=== PATIENT | male | born 1955 | race Caucasian/White ===

== ENCOUNTER → 2017-07-14 | Outpatient (CLI) | payer OTHER ==
[~2017-07-14] MED LIST: ALB0.5 INH; CIPR250S3 PO; DRON5CAP14 PO; FAMC500T18 PO; GABA-490 PO; HYDR-317 PO; KET10 PO; LOR1 PO; LOR5/325 PO; METH4TAB57 PO; OXYC-865 PO; PANT40TA65 PO; PER PO; PHEN200T32 PO; RAN150 PO; TAMS0.4C25 PO
[2017-07-14 11:34] LABS: PLATELET COUNT, AUTOMATED 207 K/uL (150-450)
--- NOTE | 2017-07-14 11:39 | EKG ---
FACILITY: [facility] [place] PATIENT NAME: CARMENCITA RODRIGUEZ : [id number] MR: [id number] V: [id number] EXAM DATE: ORDERING PHYSICIAN: BALAJI RAMIREZ TECHNOLOGIST: Test Reason : Blood Pressure : / mmHG Vent. Rate : 071 BPM Atrial Rate : 071 BPM P-R Int : 130 ms QRS Dur : 088 ms QT Int : 412 ms P-R-T Axes : 076 081 071 degrees QTc Int : 447 ms Normal sinus rhythm Normal ECG When compared with ECG of 30-NOV-2014 08:17, No significant change was found Confirmed by WAYNE ZELAYA ([id number]) on 07/14/2017 6:56:08 PM Referred By: Confirmed By:WAYNE ZELAYA
[2017-07-14 11:46] LABS: INR 0.99
== END ==
LOC: LAB 11:22
PROVIDERS: ATTEND Otolaryngology
DX: Z01.818 Encounter for other preprocedural examination (principal); C44.222 Squamous cell carcinoma of skin of right ear and external auricular canal
CPT/HCPCS: 36415; 85025; 85610; 85730; 93005

== ENCOUNTER → 2017-07-17 | Outpatient (CLI) | payer OTHER | LOC: LAB 09:36 | PROVIDERS: ATTEND Internal Medicine Medical Oncology | DX: D75.0 Familial erythrocytosis (principal) | CPT/HCPCS: 36415; 85014; 99195 ==

== ENCOUNTER 2017-07-24 00:47 | Day surgery (SDC) | payer OTHER ==
--- NOTE | 2017-07-18 10:41 | RADIOLOGY IMAGING REPORT ---
[place] [facility] [place] NAME: Jaswant Wren : 1955 MR: [id number] V: [id number] EXAM DATE: ORDERING PHYSICIAN: WAYNE PADILLA TECHNOLOGIST: Location: [facility] - [place] Patient: Jaswant Wren : 1955 Visit/Account:[id number] Date of Sevice: 07/17/2017 2 VIEWS CHEST INDICATION: COPD. Prior partial left lung resection for lung cancer. COMPARISON: None available FINDINGS: The lungs are hyperexpanded. There are flattened diaphragms bilaterally. Linear pleural parenchymal s carring seen within the right apex. Apical bulla seen here on a prior CT scan. Suspected chronic pleu ral thickening/scarring is seen within the left lung base posteriorly. No focal infiltrate. No discre te focal abnormality. Surgical staple line overlies left hilum. No effusion or pneumothorax is seen. Heart size and mediastinal contours are normal. IMPRESSION: 1. Hyperexpanded lungs in keeping with the history of COPD. 2. Postsurgical changes overlying the left hilum. 3. Known pleural parenchymal scarring and bulla within the right apex. Report Dictated By: Nima Kim at 07/18/2017 10:32 AM Report E-Signed By: Nima Kim at 07/18/2017 10:37 AM WSN:[id number]
[~2017-07-24] VITALS: Ht 177.8 cm; Wt 58.1 kg
[2017-07-24] MEDS ORDERED: METOCLOPRAMIDE 10 MG/2 ML SDV ONE (06:37)
[2017-07-24] MEDS ORDERED: ONDANSETRON 4 MG/2 ML VIAL ONE (06:37)
[2017-07-24] MEDS ORDERED: LIDOCAINE MPF 1% 5 ML VIAL ONE (06:37)
[2017-07-24] MEDS ORDERED: DEXAMETHASONE SOD 4 MG/ML VIAL ONE (06:37)
[2017-07-24] MEDS ORDERED: PROPOFOL EMUL(*) 10MG/ML 20 ML 20 ML ONE (06:37)
[2017-07-24] MEDS ORDERED: fentaNYL CITR 100 MCG/2 ML AMP ONE (06:38)
[2017-07-24 07:30] VITALS: BP 104/76
[2017-07-24] MEDS ORDERED: NORMOSOL R SOLN(*) 1000 ML BAG 1,000 ML IV PRN (08:00)
[2017-07-24] MEDS ORDERED: FAMOTIDINE 20 MG TAB PO ONE (08:00)
[2017-07-24] MEDS ORDERED: CLINDAMYCIN(*) 600 MG/NS 50 ML 50 ML IVPB ONE (08:00)
[2017-07-24] MEDS ORDERED: MIDAZOLAM 2 MG/2 ML VIAL IVP PRN (08:00)
[2017-07-24] MEDS ORDERED: LIDOCAINE/SOD BICARB 8.4% SYR ID ONE (08:00)
[2017-07-24] MEDS ORDERED: LIDO/EPI 1% MDV 1:100,000 20ML INFIL ONE (08:06)
[2017-07-24] MEDS ORDERED: BACITRACIN OINT 15 GM TUBE TP ONE (08:06)
[2017-07-24] MEDS ORDERED: HYDR-4309 PO (09:50)
[2017-07-24] MEDS ORDERED: DOXY-179 PO (09:51)
--- NOTE | 2017-07-24 10:48 | OPERATIVE REPORT 1 ---
EVENT DATE: July 24, 2017 SURGEON: Leonides Gallo MD ANESTHESIOLOGIST: Jordan Kim MD ANESTHESIA: LMA PROCEDURE 1. Excision of right external ear skin cancers. 2. Reconstruction of right external ear defect with transposition flap. PREOPERATIVE DIAGNOSES 1. 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 2. 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 POSTOPERATIVE DIAGNOSES 1. 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 2. 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 INDICATIONS Please refer to the preoperative note. DESCRIPTION OF PROCEDURE The patient was positively identified in the preoperative area. He was accompanied there by his . Risks were again explained, including but not limited to, bleeding, infection, flap failure, poor cosmetic result, positive margins, the need for further procedures and those associated with anesthesia. He acknowledged understanding of those risks. He was then brought back to the operative suite, laid supine on the operative table, and anesthesia was administered. Once asleep, the patient was positioned, then prepped and draped in the usual sterile fashion. The patient had an approximately 1 cm ulcerative lesion on the right superior conchal bowl and a 1 cm x 3 mm oblong ulcerative lesion just lateral to the meatus. An incision was planned incorporating most of the conchal bowl, including the two ulcerative lesions with sufficient margin. A postauricular transposition flap was designed and measured approximately 4 x 2 cm. Approximately 5 mL of 1% lidocaine with epinephrine was infiltrated, both into the donor site and the excision site. I first began by excising the conchal bowl along with the underlying cartilage. The deep skin flap was preserved, as this was not involved with the cancer. The specimen was marked and sent for permanent pathology. The transposition flap was then incised and elevated, leaving a vascular pedicle. This was rotated into the conchal defect and secured to the surrounding skin with interrupted nylon suture. The postauricular defect was closed with jaziel. the patient was then turned to anesthesia for emergence. ESTIMATED BLOOD LOSS 25 mL. COMPLICATIONS No complications. MTDD
[2017-07-24] MEDS ORDERED: APAP/HYDROCODONE 325/5 TAB ONE (10:58)
[2017-07-24 11:02] VITALS: BP 97/65
[2017-07-24 11:15] VITALS: BP 92/65
[2017-07-24 11:20] VITALS: BP 91/63
[2017-07-24 11:26] VITALS: BP 92/69
[2017-07-25] MEDS ORDERED: PROM-110 PO (11:27)
== END 2017-07-24 11:02 | disposition home or self-care (01) ==
LOC: OR 00:47
PROVIDERS: ATTEND Otolaryngology
DX: C44.222 Squamous cell carcinoma of skin of right ear and external auricular canal (principal); C44.212 Basal cell carcinoma of skin of right ear and external auricular canal
CPT/HCPCS: 11641; 71046; 88305; J1100; J2001; J2250; J2405; J2704; J2765; J3010; J3490

== ENCOUNTER → 2017-09-21 | Outpatient (CLI) | payer OTHER ==
[~2017-09-21] MED LIST changes: +DOXY-179 PO; +HYDR-4309 PO; +PROM-110 PO
[2017-09-21 09:30] VITALS: BP 104/74
[2017-09-21 10:58] VITALS: BP 98/72
== END ==
LOC: SPU 07:39
PROVIDERS: ATTEND Internal Medicine Medical Oncology
DX: D75.0 Familial erythrocytosis (principal)
CPT/HCPCS: 85014; 99195

== ENCOUNTER → 2017-10-13 | Outpatient (CLI) | payer OTHER ==
[2017-10-13 14:08] VITALS: BP 99/67
[2017-10-13 14:47] VITALS: BP 85/58
== END ==
LOC: SPU 08:41
PROVIDERS: ATTEND Internal Medicine Medical Oncology
DX: D75.0 Familial erythrocytosis (principal)
CPT/HCPCS: 85014; 99195

== ENCOUNTER 2017-12-06 08:27 | Outpatient (RCR) | payer OTHER ==
[2017-12-04 11:31] LABS: PLATELET COUNT, AUTOMATED 184 K/uL (150-450)
[2017-12-04 16:51] VITALS: BP 105/64
[2017-12-06 08:45] VITALS: BP 97/57
--- NOTE | 2017-12-06 14:22 | ONCOLOGY FOLLOW UP NOTE ---
EVENT DATE: December 06, 2017 REASON FOR FOLLOWUP 1. Chronic lymphocytic leukemia. 2. History of resected non-small cell lung cancer. 3. Smoking. HISTORY OF PRESENT ILLNESS Mr. Wren is here with his today. He reports that he has been feeling pretty tired in general since our last visit. He continues to work long hours at the [employer]. He has had a lot of family stress, with his daughter's illness. He continues to smoke cigarettes. His appetite has not been particularly good. He has had ongoing us aches and pains, which has been a chronic problem with him. He reports no new shortness of breath, but he does have a smoker's cough. He has had no blood in sputum. He has not been able to afford appropriate follow-up imaging status post lung cancer resection, but he did have labs drawn prior to today's visit. REVIEW OF SYSTEMS Otherwise negative, and all systems are reviewed. ONCOLOGY HISTORY 1. Chronic lymphocytic leukemia, diagnosed in spring. a. Initial presentation with abdominal pain and lymphocytosis. b. In 2007: Bone marrow biopsy is performed. Pathology reveals 15% to 30% involvement by CLL. Per prior notes, CD38 expression was less than 28%, ZAP-70 was negative, cytogenetics showed deletion 13q, denoting favorable prognosis. c. The patient has been under observation since that time with no active therapy. 2. Reported stage IA non-small cell lung cancer of the left upper lobe. a. July 07, 2009: Robotic left upper lobectomy is performed. Pathology reportedly showed a stage IA (pT1a N0) non-small cell lung cancer. Histology at this time is in question. Lymph nodes showed involvement of CLL. b. Patient is reportedly also status post resection of a right submandibular lymph node which pathology revealed as a salivary gland. PAST MEDICAL HISTORY Other than the above, past medical history is largely unknown, although I do note mention of emphysema on prior imaging. Again, the patient has not regularly followed up with primary care. CURRENT MEDICATIONS Patient reports no prescription medications at this time. ALLERGIES No known drug allergies. SOCIAL HISTORY The patient continues to smoke. He has been giving some thought to quitting, but he has not taken any definitive step in that direction. There is no history of illicit drug use. FAMILY HISTORY The patient reports that many of his family members are or have been on oxygen in the past. His brother reportedly has a history of lymphoma, and his daughter reportedly had a history of brain cancer. VITAL SIGNS Temperature is 96.6, blood pressure 97/57, heart rate is 62, respirations 15, oxygen saturation is 95% on room air. PHYSICAL EXAMINATION GENERAL: Patient is alert and oriented times three, in no apparent distress sitting in the exam room chair. He is thin, and eye contact is poor. His affect is flat, but he is communicative and pleasant. HEENT: Exam reveals anicteric sclerae. LUNGS: Clear to auscultation bilaterally. HEART: Exam reveals regular rate and rhythm. NEUROLOGIC: Exam is grossly nonfocal, although his gait is somewhat antalgic. EXTREMITIES: Exam reveals very thin extremities, but no edema, clubbing or cyanosis. LABORATORY STUDIES Reviewed per the [employer] record. IMAGING None today. ASSESSMENT AND PLAN 1. Chronic lymphocytic leukemia. Gregory does not have any B symptoms. He has no other symptoms that would raise concern, or the possibility that he would require treatment for his CLL. We reviewed his labs today. His lymphocyte count is stable, and his hemoglobin has actually come down a bit with therapeutic phlebotomy. His platelet count is normal. I have recommended ongoing monitoring of his CLL, and I will see him back in six months after repeat labs, or sooner if there are questions or concerns. 2. Resected non-small cell lung cancer. Gregory continues to smoke. He has been smoking more recently due to family stress. He had tried Zyban, but quit due to stress. We discussed this at length, and he was not able to give very good rationale. He does have a high level of stress, but he has no interest in counseling, when discussed today. His finances are tight, and he has not been able to afford a CT scan. We did involve Social Work to see if we can help him out in this regard. We have tentatively planned to have him back in clinic in the next few weeks after a CT scan is performed, if finances are no longer a concern. Otherwise I will plan to see him back in six months, and we will continue to work on appropriate surveillance for his resected non-small cell lung cancer in the meantime. RICCARDO
--- NOTE | 2017-12-06 14:56 | RADIOLOGY IMAGING REPORT ---
FACILITY: [facility] [place] PATIENT NAME: Jaswant Wren : 1955 MR: [id number] V: [id number] EXAM DATE: ORDERING PHYSICIAN: HAYDEN CABA TECHNOLOGIST: Location: [facility] - [place] Patient: Jaswant Wren : 1955 Visit/Account:[id number] Date of Sevice: 12/06/2017 CHEST W/O CONTRAST History: Non-small cell lung cancer TECHNIQUE: Contiguous axial images were performed through the chest to the level of the adrenal gla nds. No IV contrast was administered. Coronal and sagittal reformatting was also performed. Dose Lowe ring Technique One of the following dose optimization techniques was utilized in the performance of this exam: Autom ated exposure control; adjustment of the mA and/or kV according to the patient's size; or use of an i terative reconstruction technique. Specific details can be referenced in the facility's radiology C T exam operational policy. COMPARISON STUDIES: CT chest abdomen and pelvis April 13, 2016. Lungs / Pleura: Extensive centrilobular emphysema throughout the lungs and biapical bullous disease again seen and appear similar to the prior study. There is stable linear scarring in the right lowe r lobe postsurgical changes from left upper lobe again noted. Mediastinum/nodes: Mediastinal structures are not ideally evaluated due to lack of intravenous contr ast although no pathologically enlarged hilar mediastinal lymph nodes are seen Heart and vessels: negative. Musculoskeletal / Body wall: No aggressive appearing bone lesions are seen Upper abdomen: Stomach is moderately distended with particulate material which may be related to a recent meal. Previously noted hepatic hemangiomas were better depicted on the prior postcontrast study IMPRESSION: Post surgical changes in the left upper lobe Extensive centrilobular emphysema throughout the lungs and biapical bullous disease appears similar t o the prior study. Scarring in the right lung base also appears similar Additional chronic findings as described Report Dictated By: Kassy Kimble MD at 12/06/2017 2:42 PM Report E-Signed By: Kassy Kimble MD at 12/06/2017 2:53 PM WSN:[id number]
== END 2017-12-21 14:15 | disposition home or self-care (01) ==
LOC: ONC 08:27
PROVIDERS: ATTEND Internal Medicine Medical Oncology
DX: C91.10 Chronic lymphocytic leukemia of B-cell type not having achieved remission (principal); J43.2 Centrilobular emphysema; Z85.118 Personal history of other malignant neoplasm of bronchus and lung; F17.210 Nicotine dependence, cigarettes, uncomplicated
CPT/HCPCS: 36415; 71250; 82040; 82247; 82310; 82374; 82435; 82565; 82947; 83615; 84075; 84132; 84155; 84295; 84450; 84460; 84520; 85025; 99212

== ENCOUNTER 2018-04-26 11:58 | Emergency (ER) | payer OTHER ==
[~2018-04-26 11:58] MED LIST changes: -HYDR-4309 PO; +HYDR-653 PO
--- NOTE | 2018-04-26 12:08 | ER Report ---
History and Physical Time Seen By MD: 12:08 [facility] COMPLAINT: Rectal bleeding, not feeling well HISTORY OF PRESENT ILLNESS: 62-year-old male patient presents to emergency room with complaint of rectal bleeding and not feeling well. Patient states that he has noted this bleeding for the past month. He states it seems to be just on the toilet paper after he wipes. Patient states he's not noticed any blood in the stool, no blood in the water in the toilet patient states he has noticed some mucus in his stool, as well as darkening of his stool. He denies having any nausea or vomiting. Patient states he's felt feverish, he is not taking his temperature. He states that there is nothing seems to make this better or worse. He states that he does have abdominal pain, however he does have abdominal pain frequently. Patient has not taken any medication for this. REVIEW OF SYSTEMS: Respiratory: No cough, no dyspnea. Cardiovascular: No chest pain, no palpitations. Gastrointestinal: As noted above Musculoskeletal: No back pain. Allergies: Coded Allergies: Penicillins (Unverified Allergy, Intermediate, HIVES, 04/26/18) Home Meds Active Scripts Omeprazole (OMEPRAZOLE) 40 Mg Capsule.dr, 40 MG PO QDAY, #30 CAP Prov:ENRIQUE RAE 04/26/18 Sucralfate (CARAFATE) 1 Gm Tablet, 1 GM PO QID, #60 TAB Take before meals and at bedtime. Crush the tablet and mix with water before taking. Prov:ENRIQUE RAE 04/26/18 Promethazine Hcl (PROMETHAZINE HCL) 25 Mg Tablet, 12.5 MG PO Q6H PRN for NAUSEA for 4 Days, #15 TAB 0 Refills Prov:BALAJI RAMIREZ JR, MD 07/25/17 Reported Medications Hydrocodone Bit/Acetaminophen (NORCO 5-325 TABLET) 1 Each Tablet, 1 EACH PO Q6H PRN for PAIN, #15 TAB 07/24/17 Past Medical/Surgical History Patient has a past medical history of 45 year smoking history, abdominal pain, nocturia, leukemia, skin cancer, colon cancer. Patient surgical history of tonsillectomy, skin cancer removed, left lobectomy. Reviewed Nurses Notes: Yes Hx Smoking: Yes (1/2-1 ppd for 45 yrs, currently down to 3-4 cigs/day) Smoking Status: Current: Every Day Smoker Exposure to Second Hand Smoke?: Yes Hx Alcohol Use: No Constitutional Vital Sign - Last 24 Hours 04/26/18 04/26/18 04/26/18 04/26/18 12:05 12:08 12:08 12:13 Temp 98.0 Pulse 69 81 67 Resp 34 16 17 B/P (MAP) 118/93 (101) 118/93 Pulse Ox 92 95 96 O2 Delivery Room Air 04/26/18 04/26/18 04/26/18 04/26/18 12:18 12:23 12:28 12:30 Pulse 68 70 68 Resp 21 15 23 B/P (MAP) 109/82 (91) Pulse Ox 96 96 95 04/26/18 04/26/18 04/26/18 04/26/18 12:33 12:38 12:43 12:48 Pulse 74 76 59 64 Resp 10 21 17 15 Pulse Ox 95 96 96 93 04/26/18 04/26/18 04/26/18 04/26/18 12:53 13:43 13:48 13:50 Pulse 63 60 63 Resp 17 14 14 B/P (MAP) 117/88 (98) Pulse Ox 94 94 04/26/18 04/26/18 04/26/18 04/26/18 13:53 13:58 14:00 14:28 Pulse 67 63 59 Resp 20 24 20 B/P (MAP) 86/61 (69) Pulse Ox 93 94 92 04/26/18 04/26/18 04/26/18 04/26/18 14:30 14:58 15:00 15:05 Pulse 65 57 Resp 22 26 B/P (MAP) 99/70 (80) 124/90 (101) Pulse Ox 93 95 04/26/18 04/26/18 04/26/18 04/26/18 15:05 15:10 15:15 15:20 Temp 97.8 Pulse 64 59 65 Resp 23 19 12 Pulse Ox 94 96 95 04/26/18 04/26/18 04/26/18 04/26/18 15:25 15:30 15:35 15:40 Pulse 60 62 52 62 Resp 28 25 29 21 B/P (MAP) 114/81 (92) Pulse Ox 92 93 95 92 04/26/18 04/26/18 04/26/1825/18 15:45 15:50 15:55 16:00 Pulse ? 76 67 Resp 23 17 B/P (MAP) 123/99 (107) Pulse Ox 95 91 04/26/18 04/26/18 04/26/18 16:05 16:10 16:15 Pulse 65 61 60 Resp 8 21 20 Pulse Ox 90 91 92 Physical Exam General Appearance: The patient is alert, has no immediate need for airway protection and no current signs of toxicity. Respiratory: Chest is non tender, lungs are clear to auscultation. Cardiac: regular rate and rhythm Gastrointestinal: Abdomen is soft and tender in the right upper quadrant, left lower quadrant, no masses, bowel sounds normal. Musculoskeletal: Neck: Neck is supple and non tender. Extremities have full range of motion and are non tender. Skin: No rashes or lesions. DIFFERENTIAL DIAGNOSIS: After history and physical exam differential diagnosis was considered for GI bleed, hemorrhoids, metastatic disease. Medical Decision Making Data Points Result Diagram: 04/26/18 1210 04/26/18 1210 Laboratory Hematology Test 04/26/18 12:10 04/26/18 13:06 Red Blood Count 5.74 M/uL (4.00-5.60) Mean Corpuscular Volume 96.6 fL (80.0-96.0) Mean Corpuscular Hemoglobin 32.1 pg (26.0-33.0) Mean Corpuscular Hemoglobin Concent 33.2 g/dL (32.0-36.0) Red Cell Distribution Width 16.0 % (11.5-14.5) Mean Platelet Volume 7.9 fL (7.2-11.1) Neutrophils (%) (Auto) 29.7 % (39.4-72.5) Lymphocytes (%) (Auto) 66.6 % (17.6-49.6) Monocytes (%) (Auto) 2.6 % (4.1-12.4) Eosinophils (%) (Auto) 0.6 % (0.4-6.7) Basophils (%) (Auto) 0.5 % (0.3-1.4) Nucleated RBC Relative Count (auto) 0.3 /100WBC Neutrophils # (Auto) 5.3 K/uL (2.0-7.4) Lymphocytes # (Auto) 11.9 K/uL (1.3-3.6) Monocytes # (Auto) 0.5 K/uL (0.3-1.0) Eosinophils # (Auto) 0.1 K/uL (0.0-0.5) Basophils # (Auto) 0.1 K/uL (0.0-0.1) Nucleated RBC Absolute Count (auto) 0.06 K/uL Peripheral Blood Smear Yes Y/N Stool Occult Blood (IFOB) Positive (NEGATIVE) Sodium Level 139 mmol/L (137-145) Potassium Level 3.6 mmol/L (3.5-5.0) Chloride Level 102 mmol/L (98-107) Carbon Dioxide Level 29 mmol/L (22-30) Blood Urea Nitrogen 14 mg/dl (9-21) Creatinine 1.10 mg/dl (0.66-1.25) Glomerular Filtration Rate Calc > 60.0 Random Glucose 97 mg/dl (75-110) Calcium Level 9.2 mg/dl (8.4-10.2) Total Bilirubin 0.7 mg/dl (0.2-1.3) Aspartate Amino Transf (AST/SGOT) 23 U/L (0-35) Alanine Aminotransferase (ALT/SGPT) 18 U/L (0-56) Alkaline Phosphatase 69 U/L (0-126) Total Protein 6.9 g/dl (6.3-8.2) Albumin 4.1 g/dl (3.5-5.0) Urine Color Yellow Urine Clarity Clear Urine pH 5.0 pH (4.8-9.5) Urine Specific [place] 1.012 Urine Protein Negative mg/dL (NEGATIVE) Urine Glucose (UA) Negative mg/dL (NEGATIVE) Urine Ketones Negative mg/dL (NEGATIVE) Urine Blood Small (NEGATIVE) Urine Nitrite Negative (NEGATIVE) Urine Bilirubin Negative (NEGATIVE) Urine Urobilinogen Negative mg/dL (0.2-1.9) Urine Leukocyte Esterase Negative (NEGATIVE) Urine RBC 2 /HPF (0-2/HPF) Urine WBC <1 /HPF (0-5/HPF) Urine Squamous Epithelial Cells None /LPF (</=FEW) Urine Bacteria Negative /HPF (NONE-FEW) Urine Mucus None /HPF (NONE-FEW) Chemistry Test 04/26/18 12:10 04/26/18 13:06 White Blood Count 17.9 k/uL (4.5-11.0) Red Blood Count 5.74 M/uL (4.00-5.60) Hemoglobin 18.4 g/dL (14.0-18.0) Hematocrit 55.5 % (42.0-52.0) Mean Corpuscular Volume 96.6 fL (80.0-96.0) Mean Corpuscular Hemoglobin 32.1 pg (26.0-33.0) Mean Corpuscular Hemoglobin Concent 33.2 g/dL (32.0-36.0) Red Cell Distribution Width 16.0 % (11.5-14.5) Platelet Count 173 K/uL (150-450) Mean Platelet Volume 7.9 fL (7.2-11.1) Neutrophils (%) (Auto) 29.7 % (39.4-72.5) Lymphocytes (%) (Auto) 66.6 % (17.6-49.6) Monocytes (%) (Auto) 2.6 % (4.1-12.4) Eosinophils (%) (Auto) 0.6 % (0.4-6.7) Basophils (%) (Auto) 0.5 % (0.3-1.4) Nucleated RBC Relative Count (auto) 0.3 /100WBC Neutrophils # (Auto) 5.3 K/uL (2.0-7.4) Lymphocytes # (Auto) 11.9 K/uL (1.3-3.6) Monocytes # (Auto) 0.5 K/uL (0.3-1.0) Eosinophils # (Auto) 0.1 K/uL (0.0-0.5) Basophils # (Auto) 0.1 K/uL (0.0-0.1) Nucleated RBC Absolute Count (auto) 0.06 K/uL Peripheral Blood Smear Yes Y/N Stool Occult Blood (IFOB) Positive (NEGATIVE) Glomerular Filtration Rate Calc > 60.0 Calcium Level 9.2 mg/dl (8.4-10.2) Total Bilirubin 0.7 mg/dl (0.2-1.3) Aspartate Amino Transf (AST/SGOT) 23 U/L (0-35) Alanine Aminotransferase (ALT/SGPT) 18 U/L (0-56) Alkaline Phosphatase 69 U/L (0-126) Total Protein 6.9 g/dl (6.3-8.2) Albumin 4.1 g/dl (3.5-5.0) Urine Color Yellow Urine Clarity Clear Urine pH 5.0 pH (4.8-9.5) Urine Specific Penn 1.012 Urine Protein Negative mg/dL (NEGATIVE) Urine Glucose (UA) Negative mg/dL (NEGATIVE) Urine Ketones Negative mg/dL (NEGATIVE) Urine Blood Small (NEGATIVE) Urine Nitrite Negative (NEGATIVE) Urine Bilirubin Negative (NEGATIVE) Urine Urobilinogen Negative mg/dL (0.2-1.9) Urine Leukocyte Esterase Negative (NEGATIVE) Urine RBC 2 /HPF (0-2/HPF) Urine WBC <1 /HPF (0-5/HPF) Urine Squamous Epithelial Cells None /LPF (</=FEW) Urine Bacteria Negative /HPF (NONE-FEW) Urine Mucus None /HPF (NONE-FEW) Urinalysis Test 04/26/18 13:06 Urine Color Yellow Urine Clarity Clear Urine pH 5.0 pH (4.8-9.5) Urine Specific Penn 1.012 Urine Protein Negative mg/dL (NEGATIVE) Urine Glucose (UA) Negative mg/dL (NEGATIVE) Urine Ketones Negative mg/dL (NEGATIVE) Urine Blood Small (NEGATIVE) Urine Nitrite Negative (NEGATIVE) Urine Bilirubin Negative (NEGATIVE) Urine Urobilinogen Negative mg/dL (0.2-1.9) Urine Leukocyte Esterase Negative (NEGATIVE) Urine RBC 2 /HPF (0-2/HPF) Urine WBC <1 /HPF (0-5/HPF) Urine Squamous Epithelial Cells None /LPF (</=FEW) Urine Bacteria Negative /HPF (NONE-FEW) Urine Mucus None /HPF (NONE-FEW) EKG/Imaging Imaging CT abdomen and pelvis with IV contrast Indication: Abdominal pain. Comparison: 04/13/2018.. Technique: Axial CT images were obtained through the abdomen and pelvis during injection of nonionic iodinated intravenous contrast. Reformatted coronal and sagittal images were also obtained. One of the following dose optimization techniques was utilized in the performance of this exam: Automated exposure control; adjustment of the mA and/or kV according to the patient's size; or use of an iterative reconstruction technique. Specific details can be referenced in the facility's radiology CT exam operational policy. Contrast: 75 ml of Isovue-370 IV contrast. Findings: Lower lung jordan: Emphysematous changes and mild scarring, otherwise clear. Liver: Multiple subcentimeter hypodensities scattered throughout the liver which are unchanged. These are too small characterize and statistically tiny cyst. No other focal abnormality. Biliary: Gallbladder appears unremarkable as well as the intra and extra hepatic biliary system. Pancreas: No focal abnormality. Spleen: Normal appearance. Adrenal glands: Unremarkable. Kidneys / retroperitoneum: No evidence of nephrolithiasis or hydronephrosis the superior aspect of the left kidney does show a stable 8 mm cyst. Bowel / peritoneum / mesenteries: The central small bowel in the lower abdomen does show a small loop of early intussusception. However there is no focal abnormality or obstruction. Small bowel shows no other focal abnormality or indication of obstruction or wall thickening/enhancement. The colon shows no focal abnormality. The appendix is normal. The stomach is grossly normal. No free air, free fluid, fluid collections. No focal areas of inflammation. Lymph node assessment: No pathologic adenopathy identified. Pelvic structures: Appear unremarkable. Vessels: Mild atherosclerotic calcifications seen throughout a nonaneurysmal abdominal aorta and branches. Musculoskeletal / Body wall: No acute or aggressive osseous abnormality. There is continued stable bilateral pars defect at L5 level causing anterior spondylolisthesis of L5 over S1 of 7.4 mm. There is a stable anterior spondylolisthesis of L3 over L4 of 6.7 mm due to facet arthropathy. IMPRESSION: 1. The lower central abdomen does show a area of early focal intussusception of the small bowel. There is no focal abnormality or obstruction. Unsure if this is cause of patient's pain and this could be transient. 2. The exam otherwise shows no indication of acute abnormality. 3. Multiple stable chronic findings as above. Report Dictated By: Daron Giron at 04/26/2018 2:11 PM Report E-Signed By: Daron Giron at 04/26/2018 2:21 PM 2 VIEWS CHEST INDICATION: Not feeling well for 2 months. History smoking. COMPARISON: 07/18/2017. FINDINGS: Cardiomediastinal silhouette and pulmonary vessels within normal limits. Lungs again show emphysematous changes. No focal area of consolidation. Postinflammatory changes again seen apices with some chronic interstitial changes present as well. There is no pneumothorax or pleural effusion. No nodule. Upper abdomen is unremarkable. No acute bony abnormality. IMPRESSION: 1. No acute cardiopulmonary process. Report Dictated By: Daron Giron at 04/26/2018 2:09 PM Report E-Signed By: Daron Giron at 04/26/2018 2:10 PM ABDOMEN/PELVIS WITH ORAL CONTRAST ONLY IS HISTORY: early focal intusseption TECHNIQUE: Following administration of volumen oral contrast contiguous axial images acquired through the abdomen/pelvis. Coronal and sagittal reformatting also performed.Dose Lowering Technique One of the following dose optimization techniques was utilized in the performance of this exam: Automated exposure control; adjustment of the mA and/or kV according to the patient's size; or use of an iterative reconstruction technique. Specific details can be referenced in the facility's radiology CT exam operational policy. CONTRAST: 1350 mL of volumen oral contrast COMPARISON: CT on pelvis performed earlier in the day FINDINGS: Visualized lung bases: Emphysematous changes and mild by basilar scarring Hepatobiliary: Tiny hypodensities again seen throughout liver which are too small to characterize. There is an additional 3.3 x 2.1 cm hypoattenuating mass along the anterior superior aspect medial segment left lobe of the liver. This did demonstrate partial contrast enhancement on the earlier scan could represent hemangioma although other hepatic lesions are not included in the differential diagnosis there is additional 1.1 cm hypoattenuating mass along the dome of the right lobe that also demonstrated faint contrast enhancement on the prior study Spleen: Negative. Adrenals: Negative. Pancreas: Negative. Kidneys ureters or bladder: Subcentimeter cortical hypodensities likely represent cysts although are too small to characterize . Contrast is present in the renal collecting systems and ureters from the earlier CT scan. Urinary bladder is well-distended with contrast Genitalia: Negative. GI: The previously noted early intussusception of the small bowel in the central low abdomen has resolved and was apparently transient. There is no evidence of small bowel obstruction. Appendix does not appear inflamed. 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 There is dense sclerosis of the medial aspect of the pubic symphysis. This has remained stable when compared to a prior CT from 09/17/2013. Additional findings: None pertinent. IMPRESSION: The previously noted early intussusception of the small bowel in the central abdomen has resolved and was apparently transient. There is no evidence of bowel obstruction at this time There is a 3.3 x 2.1 cm hypoattenuating mass along the anterior superior aspect of the medial segment of the left lobe of the liver and a 1.1 cm hypoattenuating mass along the dome of the right lobe of the liver. Both of these lesions demonstrated contrast enhancement on the prior study. These could represent hemangiomas although other solid hepatic masses are not excluded. Further evaluation with MR the liver with and without contrast recommended with a liver mass protocol Report Dictated By: Kassy Kimble MD at 04/26/2018 4:16 PM Report E-Signed By: Kassy Kimble MD at 04/26/2018 4:31 PM ED Course/Re-evaluation ED Course Patient is admitted and examined, history and physical were obtained. Distal diagnoses were considered. On examination lungs are clear, heart is regular, abdomen is soft and tender in the right upper quadrant and left lower quadrant. A CBC, CMP, urinalysis, occult stool were obtained. Patient was positive for blood with a cold stool. CBC showed no a white count of 17,000 which is consistent with last time he had lab work done in January. CMP was unremarkable. A CT scan of the abdomen and pelvis was done. Initial scan showed early focal intussusception. I discussed the case with Dr. Gupta, general surgeon, who recommended a repeat CT scan using oral contrast to look for intussusception. Th repeat CT scan showed resolution of intussusception. I discussed findings with patient and his . We will go ahead and put him on omeprazole and Carafate. We'll have him follow-up with Dr. Gupta. He is return to emergency room if condition worsens. Patient and verbalized understanding and agreement with plan. Decision to Disposition Date: Apr 26, 2018 Decision to Disposition Time: 17:02 Depart Departure Latest Vital Signs Vital Signs Date Time Temp Pulse Resp B/P (MAP) Pulse Ox O2 Delivery O2 Flow Rate FiO2 04/26/18 16:15 60 20 92 04/26/18 16:00 123/99 (107) 04/26/18 15:05 97.8 04/26/18 12:08 Room Air Impression: Primary Impression: Gastrointestinal bleeding Condition: Improved Disposition: HOME OR SELF-CARE Referrals: ALEYDA JUAN DO (PCP) WAYNE GUPTA MD New Scripts Omeprazole (OMEPRAZOLE) 40 Mg Capsule. 40 MG PO QDAY, #30 CAP Prov: ENRIQUE RAE 04/26/18 Sucralfate (CARAFATE) 1 Gm Tablet 1 GM PO QID, #60 TAB Take before meals and at bedtime. Crush the tablet and mix with water before taking. Prov: ENRIQUE RAE 04/26/18 Patient Instructions: Gastrointestinal Bleeding (ED) Additional Instructions: Increase fluid intake. Get plenty of rest. Follow up with Dr. Gupta. Return to the ER if condition worsens. Continue with normal diet and medications. Don't take any Ibuprofen, Aleve, Advil, Motrin or Naproxen. Problem Qualifiers Primary Impression: Gastrointestinal bleeding GI bleed type/associated pathology: unspecified gastrointestinal hemorrhage type Qualified Codes: K92.2 - Gastrointestinal hemorrhage, unspecified ENRIQUE RAE Apr 26, 2018 12:08
[2018-04-26 12:56] LABS: PLATELET COUNT, AUTOMATED 173 K/uL (150-450)
[2018-04-26] MEDS ORDERED: IOPAMIDOL 76% 75 ML INFUS BTL 75 ML ONE (13:44)
--- NOTE | 2018-04-26 14:14 | RADIOLOGY IMAGING REPORT ---
FACILITY: [facility] PATIENT NAME: Jaswant Wren : 1955 MR: [id number] V: [id number] EXAM DATE: ORDERING PHYSICIAN: ENRIQUE RAE TECHNOLOGIST: [place] [facility] [place] Jaswant Wren : 1955 Visit/Account:[id number] Date of Sevice: 04/26/2018 2 VIEWS CHEST INDICATION: Not feeling well for 2 months. History smoking. COMPARISON: 07/18/2017. FINDINGS: Cardiomediastinal silhouette and pulmonary vessels within normal limits. Lungs again show emphysematous changes. No focal area of consolidation. Postinflammatory changes agai n seen apices with some chronic interstitial changes present as well. There is no pneumothorax or pleural effusion. No nodule. Upper abdomen is unremarkable. No acute bony abnormality. IMPRESSION: 1. No acute cardiopulmonary process. Report Dictated By: Daron Giron at 04/26/2018 2:09 PM Report E-Signed By: Daron Giron at 04/26/2018 2:10 PM WSN:[id number]
--- NOTE | 2018-04-26 14:25 | RADIOLOGY IMAGING REPORT ---
FACILITY: [facility] PATIENT NAME: Jaswant Wren : 1955 MR: [id number] V: [id number] EXAM DATE: ORDERING PHYSICIAN: ENRIQUE RAE TECHNOLOGIST: Location: [facility] - [place] Patient: Jaswant Wren : 1955 Visit/Account:[id number] Date of Sevice: 04/26/2018 CT abdomen and pelvis with IV contrast Indication: Abdominal pain. Comparison: 04/13/2018.. Technique: Axial CT images were obtained through the abdomen and pelvis during injection of nonioni c iodinated intravenous contrast. Reformatted coronal and sagittal images were also obtained. One of the following dose optimization techniques was utilized in the performance of this exam: Autom ated exposure control; adjustment of the mA and/or kV according to the patient's size; or use of an i terative reconstruction technique. Specific details can be referenced in the facility's radiology C T exam operational policy. Contrast: 75 ml of Isovue-370 IV contrast. Findings: Lower lung jordan: Emphysematous changes and mild scarring, otherwise clear. Liver: Multiple subcentimeter hypodensities scattered throughout the liver which are unchanged. These are too small characterize and statistically tiny cyst. No other focal abnormality. Biliary: Gallbladder appears unremarkable as well as the intra and extra hepatic biliary system. Pancreas: No focal abnormality. Spleen: Normal appearance. Adrenal glands: Unremarkable. Kidneys / retroperitoneum: No evidence of nephrolithiasis or hydronephrosis the superior aspect of th e left kidney does show a stable 8 mm cyst. Bowel / peritoneum / mesenteries: The central small bowel in the lower abdomen does show a small loop of early intussusception. However there is no focal abnormality or obstruction. Small bowel shows no other focal abnormality or indication of obstruction or wall thickening/enhancement. The colon shows no focal abnormality. The appendix is normal. The stomach is grossly normal. No free air, free fluid, fluid collections. No focal areas of inflammation. Lymph node assessment: No pathologic adenopathy identified. Pelvic structures: Appear unremarkable. Vessels: Mild atherosclerotic calcifications seen throughout a nonaneurysmal abdominal aorta and bran ches. Musculoskeletal / Body wall: No acute or aggressive osseous abnormality. There is continued stable bi lateral pars defect at L5 level causing anterior spondylolisthesis of L5 over S1 of 7.4 mm. There is a stable anterior spondylolisthesis of L3 over L4 of 6.7 mm due to facet arthropathy. IMPRESSION: 1. The lower central abdomen does show a area of early focal intussusception of the small bowel. Ther e is no focal abnormality or obstruction. Unsure if this is cause of patient's pain and this could be transient. 2. The exam otherwise shows no indication of acute abnormality. 3. Multiple stable chronic findings as above. Report Dictated By: Daron Giron at 04/26/2018 2:11 PM Report E-Signed By: Daron Giron at 04/26/2018 2:21 PM WSN:[id number]
[2018-04-26] MEDS ORDERED: BARIUM SULFATE 450 ML SUSP ONE (14:57)
[2018-04-26 16:00] VITALS: BP 123/99
--- NOTE | 2018-04-26 16:36 | RADIOLOGY IMAGING REPORT ---
FACILITY: [facility] [place] PATIENT NAME: Jaswant Wren : 1955 MR: [id number] V: [id number] EXAM DATE: ORDERING PHYSICIAN: ENRIQUE RAE TECHNOLOGIST: Location: [facility] Patient: Jaswant Wren : 1955 Visit/Account:[id number] Date of Sevice: 04/26/2018 ABDOMEN/PELVIS WITH ORAL CONTRAST ONLY IS HISTORY: early focal intusseption TECHNIQUE: Following administration of volumen oral contrast contiguous axial images acquired through the abdomen/pelvis. Coronal and sagittal reformatting also performed.Dose Lowering Technique One of the following dose optimization techniques was utilized in the performance of this exam: Autom ated exposure control; adjustment of the mA and/or kV according to the patient's size; or use of an i terative reconstruction technique. Specific details can be referenced in the facility's radiology C T exam operational policy. CONTRAST: 1350 mL of volumen oral contrast COMPARISON: CT on pelvis performed earlier in the day FINDINGS: Visualized lung bases: Emphysematous changes and mild by basilar scarring Hepatobiliary: Tiny hypodensities again seen throughout liver which are too small to characterize. There is an additional 3.3 x 2.1 cm hypoattenuating mass along the anterior superior aspect medial se gment left lobe of the liver. This did demonstrate partial contrast enhancement on the earlier scan could represent hemangioma although other hepatic lesions are not included in the differential diagno sis there is additional 1.1 cm hypoattenuating mass along the dome of the right lobe that also demons trated faint contrast enhancement on the prior study Spleen: Negative. Adrenals: Negative. Pancreas: Negative. Kidneys ureters or bladder: Subcentimeter cortical hypodensities likely represent cysts although are too small to characterize . Contrast is present in the renal collecting systems and ureters from e earlier CT scan. Urinary bladder is well-distended with contrast Genitalia: Negative. GI: The previously noted early intussusception of the small bowel in the central low abdomen has resolved and was apparently transient. There is no evidence of small bowel obstruction. Appendix does not a ppear inflamed. 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 There is dense scleros is of the medial aspect of the pubic symphysis. This has remained stable when compared to a prior CT from 09/17/2013. Additional findings: None pertinent. IMPRESSION: The previously noted early intussusception of the small bowel in the central abdomen has resolved and was apparently transient. There is no evidence of bowel obstruction at this time There is a 3.3 x 2.1 cm hypoattenuating mass along the anterior superior aspect of the medial segment of the left lobe of the liver and a 1.1 cm hypoattenuating mass along the dome of the right lobe of the liver. Both of these lesions demonstrated contrast enhancement on the prior study. These could represent hemangiomas although other solid hepatic masses are not excluded. Further evaluation with MR the liver with and without contrast recommended with a liver mass protocol Report Dictated By: Kassy Kimble MD at 04/26/2018 4:16 PM Report E-Signed By: Kassy Kimble MD at 04/26/2018 4:31 PM DEVANTEN:TIMA
[2018-04-26] MEDS ORDERED: SUCR1TAB85 PO (17:00)
[2018-04-26] MEDS ORDERED: OMEP40CA48 PO (17:00)
== END 2018-04-26 17:18 | disposition home or self-care (01) ==
LOC: ER 12:00
DX: K92.2 Gastrointestinal hemorrhage, unspecified (principal)
CPT/HCPCS: 71046; 74176; 74177; 81001; 82274; 85025; 99284; Q9967; 82040; 82247; 82310; 82374; 82435; 82565; 82947; 84075; 84132; 84155; 84295; 84450; 84460; 84520

== ENCOUNTER 2018-05-08 01:51 | Day surgery (SDC) | payer OTHER ==
[2018-05-08] VITALS (7 sets, daily range): BP systolic 76–129; BP diastolic 52–88
[~2018-05-08] VITALS: Ht 177.8 cm; Wt 52.2 kg
[~2018-05-08 01:51] MED LIST changes: +OMEP40CA48 PO; +SUCR1TAB85 PO
[2018-05-08] MEDS ORDERED: LIDOCAINE/SOD BICARB 8.4% SYR ID ONE (08:35)
[2018-05-08] MEDS ORDERED: NORMOSOL R SOLN(*) 1000 ML BAG 1,000 ML IV PRN (08:35)
[2018-05-08] MEDS ORDERED: LIDOCAINE MPF 1% 5 ML VIAL ONE (10:18)
[2018-05-08] MEDS ORDERED: PROPOFOL EMUL(*) 10MG/ML 20 ML 60 ML ONE (10:18)
[2018-05-08] MEDS ORDERED: PROPOFOL EMUL(*) 10MG/ML 20 ML 40 ML ONE (10:44)
--- NOTE | 2018-05-08 12:00 | Post Operative Note ---
Operative Note - ENT Operative Day Date: May 08, 2018 Time: 11:51 Physicians Surgeon: Kt Posey MD Skein Yarn Drier: None Anesthesia: MAC Diagnosis Pre-Op Diagnosis: Rectal Bleeding Post-Op Diagnosis: Same Procedure Findings: Esophageal Metaplasia; no source of bleeding identified Procedure(s): 1. EGD with cold biopsies of esophagus 2. Colonoscopy to cecum Procedure: EGD - sedation administered. Patient rolled onto his left side. Scope passed easily into his esophagus. Advanced to the 2nd portion of the duodenum. No abnormalities noted in the duodenum, gastric antrum or fundus. Hiatal hernia noted. An irregular z-line was noted with both a couple long peninsulas and more proximal islands of metaplasia. 3 cold biopsies were performed and sent as a single specimen. The remainder of the esophagus was normal. Colonoscopy: External examination was normal. JAX was normal with a normal prostate. The scope was advanced to the cecum without difficulty. The prep was good with some liquid stool that was able to be aspirated. The cecum was identified by the ileocecal valve. Withdraw of the scope did not reveal any polyps and no clear diverticulosis. No significant hemorrhoids were identifed on retroflexion in the rectum. He tolerated the procedure well. Specimen Removed:(Maybe N/A): 1. Distal esophagus 2. Hiatal Hernia Complications: None Fluids Estimated Blood Loss: <5ml Dictated Copies to: JENY NUNEZ MD ; KT POSEY MD May 08, 2018 12:00
== END 2018-05-08 12:45 | disposition home or self-care (01) ==
LOC: OR 01:51
PROVIDERS: ATTEND Surgery
DX: K22.70 Barrett's esophagus without dysplasia (principal)
CPT/HCPCS: 00811; 43239; 45378; 88305; 88313; J2001; J2704

== ENCOUNTER → 2018-10-25 | Outpatient (CLI) | payer OTHER ==
[2018-10-25 10:16] LABS: PLATELET COUNT, AUTOMATED 190 K/uL (150-450)
== END ==
LOC: LAB 09:58
PROVIDERS: ATTEND Internal Medicine Hematology & Oncology
DX: C91.90 Lymphoid leukemia, unspecified not having achieved remission (principal); C34.92 Malignant neoplasm of unspecified part of left bronchus or lung; Z72.0 Tobacco use
CPT/HCPCS: 36415; 82040; 82247; 82310; 82374; 82435; 82565; 82947; 83615; 84075; 84132; 84155; 84295; 84450; 84460; 84520; 85007; 85027

== ENCOUNTER 2018-12-27 08:11 | Outpatient (RCR) | payer OTHER ==
[2018-10-31 08:16] VITALS: BP 107/79
[2018-10-31 09:32] VITALS: BP 107/77
[2018-11-14 08:35] VITALS: BP 102/76
[2018-11-14 09:22] VITALS: BP 95/66
[2018-11-29 09:03] VITALS: BP 99/72
[2018-11-29] MEDS: LIDOCAINE/SOD BICARB 8.4% SYR ID PRN (09:53)
[2018-11-29 10:14] VITALS: BP 83/69
[2018-12-13 08:12] VITALS: BP 107/62
[2018-12-13] MEDS: LIDOCAINE/SOD BICARB 8.4% SYR ID PRN (08:32)
[2018-12-13 08:56] VITALS: BP 108/72
[~2018-12-27 08:11] MED LIST changes: +DEXTROSE 5%(*) 100 ML BAG 100 ML IVPB PRN; +NS(*) 0.9% 100 ML BAG 100 ML IVPB PRN
[2018-12-27 08:21] VITALS: BP 93/72
[2018-12-27] MEDS: LIDOCAINE/SOD BICARB 8.4% SYR ID PRN (09:00)
[2018-12-27 09:05] VITALS: BP 104/76
== END 2019-01-16 13:29 | disposition home or self-care (01) ==
LOC: SPU 08:11
PROVIDERS: ATTEND Internal Medicine Hematology & Oncology
DX: D75.0 Familial erythrocytosis (principal)
CPT/HCPCS: 85014; 99195